=== PATIENT | male | born 1980 | race Two or more races ===

== ENCOUNTER 2023-09-28 17:56 | Inpatient (IN) | payer OTHER, SELFPAY ==
[2023-09-28 18:41] VITALS: BMI 17.0
[2023-09-28 18:42] VITALS: BP 129/86; PULSE 56; RESP 17; TEMP 36.7; O2SAT 99
--- NOTE | 2023-09-28 18:58 | PC.ADMIT ---
Hieu Gardner arrived to the unit at 1805, signed Conditional Voluntary, sharps check done by chart writer and male MHC. Upon approach Hieu reports feeling Very depressed, he reports feeling anxious, hearing voices They are laughing at me, making fun of me. He reports using Fentanyl, cocaine, cannabis and heroin prior to admission, reports withdrawal symptoms, he reports SI with plan to inject 50 bags of heroin. Hieu stated 'I just want to go to bed, per assessment Hieu presented to [facility] endorsing SI with plan to overdose on heroin. Hieu reported increased depression to due various stresors such as being homeless which has contributed to his increase in substance abuse. Per assessment Hieu is seeking to stabilize his depression to abstain from substances.
[2023-09-29] MEDS: Loperamide HCl 2 MG CAPSULE PO (06:52)
[2023-09-29] MEDS: cloNIDine HCL 0.1 MG TABLET PO (06:52)
[2023-09-29] MEDS: Dicyclomine HCl 10 MG CAPSULE PO (06:52)
[2023-09-29 08:00] VITALS: PULSE 52
[2023-09-29 08:24] VITALS: BP 111/69; PULSE 52; RESP 16; TEMP 37; O2SAT 99
[2023-09-29 08:43] LABS: MANUAL DIFF FLAG NO
[2023-09-29 08:51] LABS: Basophils Percent Auto 0.2 % (0-2); Hemoglobin 11.7 g/dl (14.0-18.0); Imm Gran Abs Auto 0.03 X10*3/uL (0.00-0.03); Imm Gran Pct Auto 0.3 % (0.0-0.4); Lymphocytes Absolute Auto 2.1 X10*3/uL (1.2-4.9); Lymphocytes Percent Auto 24.2 % (20-40); Mean Corpuscular HGB Conc 32.5 g/dl (31.0-36.0); Mean Corpuscular Hemoglobin 28.5 pg (27.0-33.0); Mean Corpuscular Volume 87.8 fL (80.0-98.0); Mean Platelet Volume 10.1 fL (9.4-12.4); Monocytes Absolute Auto 0.4 X10*3/uL (0.1-1.2); Monocytes Percent Auto 4.4 % (2-11); Neutrophils Absolute Auto 6.1 x10*3/uL (2.0-8.3); Neutrophils Percent Auto 70.9 % (45-73); Platelet Count 301 X10*3/uL (160-400); Red Cell Distribution Width 13.8 % (11.0-16.0); White Blood Count 8.6 X10*3/uL (4.8-10.8)
[2023-09-29 09:16] LABS: Alanine Aminotransferase 30 U/L (0-40); Albumin Level 3.6 g/dL (3.5-5.0); Alkaline Phosphatase 68 U/L (39-117); Anion Gap 12 (12-20); Aspartate Amino Transferase 33 U/L (5-37); Bilirubin Direct 0.2 mg/dL (0.0-0.5); Bilirubin Total 0.4 mg/dL (0.0-1.0); Blood Urea Nitrogen 10 mg/dL (9-16); Calcium 8.9 mg/dL (8.4-10.2); Carbon Dioxide 24 mmol/L (22-29); Chloride 104 mmol/L (96-108); Cholesterol 131 mg/dL (<200); Creatinine Clr Calc Pharmacy 93.5; Estimated Glomerular Filt Rate > 60; Glucose Fasting 105 mg/dL (60-99); HDL Cholesterol 61 mg/dL (>40); LDL Cholesterol Calculated 60 mg/dL (<100); Potassium 4.2 mmol/L (3.3-5.1); Sodium 136 mmol/L (135-145); Total Protein 6.8 g/dL (6.5-8.0); Triglycerides 54 mg/dL (<150)
[2023-09-29 09:33] LABS: Estimated Average Glucose 111 mg/dL; Free T4 (Free Thyroxine) 0.87 ng/dL (0.71-1.85); Hemoglobin A1c % 5.5 % (<6.0); Thyroid Stimulating Hormone 0.08 uIU/mL (0.32-4.0)
[2023-09-29 09:40] LABS: Folate 13.5 ng/mL (> or = 4.0); Vitamin B12 284 pg/mL (200-900)
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
--- NOTE | 2023-09-29 11:33 | HO.PM.IMCN ---
History of Present Illness Data of Consult Service Date: 09/29/23 Primary Care Provider: Unknown Physician HPI Reason for consult: Admission H&P Pt is a 43-year-old male with a PMH significant for untreated?hepatitis-C, IVDU, and schizophrenia who is admitted to [facility] psychiatry unit for increasing depression with SI with plan to overdose on heroin. Medical consult for admission H&P. ?Pt complains of feeling overall ?terrible? from detoxing. Has been having difficulty sleeping, nausea but no vomiting, over whole body aches. States he has been using 20 bags of heroin daily with last use 2 days ago. Patient injects in both arms and neck. He also reports being diagnosed with hepatitis C 10-12 years ago, has never sought treatment for this. Patient otherwise denies any acute medical complaints. Labs reviewed, significant for TSH of 0.08, otherwise grossly unremarkable. Review of Systems Review of Systems: Myalgias Upset stomach/nausea Difficulty sleeping Otherwise denies any acute medical complaints PMFSH Social History Household Members: None Housing: Homeless Do you presently have visiting nurse or other home services: No Patient Tobacco Use Status: Current everyday Tobacco user Tobacco use type: Cigarette Cigarette Packs Per Day: 1 Cigarettes Per Day: 20.0 Years Smoked: Many Smoked in Last 30 Days: Yes e-Cigarette/Vaping Use: Currently Using Patient Interested in Nicotine Replacement: No Use of substances other than those prescribed or required for medical reasons: Yes Substance Use Type: Crack/Cocaine, Heroin, IV Drugs and Marijuana Substance Use Type Other:: Fentanyl Substance Use Frequency: Chronic Longstanding Last Used Substance: Just Prior to Admission Currently Displaying Signs/Symptoms of Drug Intoxication Withdrawal: Yes (pt is on a COWS qshift) Any prior treatment program specific to substance use: No Have you been hit, kicked, punched, or otherwise hurt by someone within the past year? If so, by whom?: No Do you feel safe in your current relationship?: No Current Relationship Is there a partner from a previous relationship who is making you feel unsafe now?: No Are you made to feel afraid or neglected: No Spiritual Healthcare Practices: None Reported Hinduism Healthcare Practices: None Reported Cultural Healthcare Practices: None Reported Advance Directives: No Advance Directives Information Provided: No Do you have thoughts of harming others: None Do you have a plan to hurt others: No Plan Recently lost weight without trying: Unsure Eating poorly because of decreased appetite: No Nutrition Risks: No Nutritional Risk Poor oral hygiene: No service: No Sexual orientation: Straight/Heterosexual Meds Allergies Allergy/AdvReac Type Severity Reaction Status Date / Time Unable to Assess Allergy Verified 09/28/23 18:11 Active Medications: Current Medications Acetaminophen (Acetaminophen 325 Mg Tablet) 650 mg PO Q6H PRN PRN Reason: Headache/Pain Mild Scale (1-3) Al Hydroxide/Mg Hydroxide (Magnesium Hydrox/Alum Hydrox 30 Ml Oral.Susp) 30 ml PO Q6H PRN PRN Reason: Heartburn/Nausea Clonidine HCl (Clonidine Hcl 0.1 Mg Tablet) 0.1 mg PO Q4H PRN; Protocol PRN Reason: signs of opioid withdrawal Last Admin: 09/29/23 06:52 Dose: 0.1 mg Dicyclomine HCl (Dicyclomine Hcl 10 Mg Capsule) 10 mg PO QIDACHS PRN PRN Reason: cramps Last Admin: 09/29/23 06:52 Dose: 10 mg Hydroxyzine HCl (Hydroxyzine Hcl 25 Mg Tablet) 25 mg PO Q6H PRN PRN Reason: Anxiety Ibuprofen (Ibuprofen 600 Mg Tablet) 600 mg PO Q6H PRN PRN Reason: Pain, Moderate(Pain Scale 4-6) Loperamide HCl (Loperamide Hcl 2 Mg Capsule) 2 mg PO Q6H PRN PRN Reason: Diarrhea Last Admin: 09/29/23 06:52 Dose: 2 mg Magnesium Hydroxide (Milk Of Magnesia 30 Ml Oral.Susp) 30 ml PO DAILY PRN PRN Reason: Constipation Nicotine Polacrilex (Nicotine Polacrilex 2 Mg Gum) 4 mg BUCCAL Q2H PRN PRN Reason: Nicotine Cravings Trazodone HCl (Trazodone Hcl 50 Mg Tablet) 50 mg PO BEDTIME MRX1 PRN PRN Reason: Insomnia Physical Exam Vital Signs and Narrative: Vital Signs: Last Vital Signs Temp 98.6 F 09/29/23 08:24 Pulse 52 09/29/23 08:24 Resp 16 09/29/23 08:24 BP 111/69 09/29/23 08:24 Pulse Ox 99 09/29/23 08:24 O2 Del Method Room Air 09/29/23 08:24 BMI result Body Mass Index 17.0 General: AOx3, cachectic, no acute distress HEENT: Poor dentition, sclera non icteric Resp: CTA bilaterally CVS: S1, S2, RRR GI: +BS, NT, no distention Skin: No rash, no sign of cellulitis in upper extremities or neck Neuro: Cranial nerves II-XII grossly intact bilaterally. Motor grossly intact bilaterally Extremities: No edema Psych: Flat affect Results Labs 09/29/23 07:59 09/29/23 07:59 Labs: Laboratory Results - last 24 hr 09/29/23 07:59 MCV 87.8 MCH 28.5 MCHC 32.5 RDW 13.8 Plt Count 301 MPV 10.1 Immature Gran % (Auto) 0.3 Neut % (Auto) 70.9 Lymph % (Auto) 24.2 [place] % (Auto) 4.4 Eos % (Auto) 0.0 Baso % (Auto) 0.2 Lymph # (Auto) 2.1 [place] # (Auto) 0.4 Eos # (Auto) 0.0 Baso # (Auto) 0.0 Abs Immat Gran (auto) 0.03 Absolute Neuts (auto) 6.1 Absolute Nucleated RBC 0.000 Nucleated RBC % (auto) 0.0 Anion Gap 12 Estim Creat Clear Calc 93.5 Estimated GFR > 60 Fasting Glucose 105 H Estimat Average Glucose 111 Hemoglobin A1c % 5.5 Calcium 8.9 Total Bilirubin 0.4 Direct Bilirubin 0.2 AST 33 ALT 30 Alkaline Phosphatase 68 Total Protein 6.8 Albumin 3.6 Triglycerides 54 Cholesterol 131 LDL Cholesterol, Calc 60 HDL Cholesterol 61 Vitamin B12 284 Folate 13.5 TSH 0.08 L Free T4 0.87 Assessment and Plan (1) Medical clearance for psychiatric admission: Status: Acute Plan Pt is a 43-year-old male with a PMH significant for untreated?hepatitis-C, IVDU, and schizophrenia who is admitted to [facility] psychiatry unit for increasing depression with SI with plan to overdose on heroin. Medical consult for admission H&P. Mood disorder Plan as per Psychiatry IVDU Patient reports daily use of 20 bags of heroin, injected into upper extremities and neck, last used 2 days ago Plan as per Psychiatry Hepatitis-C Patient reports being diagnosed 10-12 years ago, has never sought treatment Currently asymptomatic, hepatic panel unremarkable Follow-up outpatient for hep C viral load, possible treatment Thank you for allowing us to participate in the care of this patient. Signing off at this time. Please let us know if there are any acute complaints or questions.
[2023-09-29] MEDS: methADONE HCl 20 MG/2 ML ORAL.CONC 40 MG PO (12:54)
[2023-09-29] MEDS: FLUoxetine HCl 10 MG CAPSULE PO (12:55)
[2023-09-29] MEDS: risperiDONE 1 MG TABLET PO ×2 (12:55→22:13)
--- NOTE | 2023-09-29 15:37 | HO.ADDICT_ITS ---
History of Present Illness Date of Service: 09/29/2023 Chief Complaint: Depression Reason for Consult: opioid use disorder and withdrawal Sources of Information: patient interviewed and chart reviewed HPI Narrative: Patient is a 43 year old male with OUD currently admitted to unit with worsening depression. Consult requested as patient was reporting withdrawal sx, and was given methadone 40mg while in ED prior to admission on 09/28. 40mg methadone administered today prior to interview with this quality analyst/technical writer. Patient seen in room 306--hoop punch and coiler operator present during interview. Patient laying in bed, covers pulled up. Awake, easily engaging in conversation, however softspoken. Reporting 2 bundles of opiate use daily along with cocaine. Denies any other substance use, including alcohol. Reporting improvement in withdrawal sx with methadone dose. Previously on methadone for years , reprots being stable at 60mg daily. Most recently at [facility] and would like to return there for continuation of treatment at time of discharge. Admission note shows early age use of heroin and cocaine (21 years old). Limited supports, unstably housed. Review of Systems Constitutional: Reports body ache(s), Reports malaise and Reports poor appetite Gastrointestinal: Reports loose stools Diagnostics Vital Signs (24Hr): Vital Signs - 24 hr 09/28/23 18:42 09/29/23 08:24 Temperature 98.1 F 98.6 F Pulse Rate 56 52 Respiratory Rate 17 16 Blood Pressure 129/86 111/69 Pulse Oximetry 99 99 Oxygen Delivery Method Room Air Room Air BMI result Body Mass Index 17.0 Labs 09/29/23 07:59 09/29/23 07:59 Labs: Laboratory Results - last 48 hr 09/29/23 07:59 WBC 8.6 RBC 4.10 L Hgb 11.7 L Hct 36.0 L MCV 87.8 MCH 28.5 MCHC 32.5 RDW 13.8 Plt Count 301 MPV 10.1 Immature Gran % (Auto) 0.3 Neut % (Auto) 70.9 Lymph % (Auto) 24.2 [place] % (Auto) 4.4 Eos % (Auto) 0.0 Baso % (Auto) 0.2 Lymph # (Auto) 2.1 [place] # (Auto) 0.4 Eos # (Auto) 0.0 Baso # (Auto) 0.0 Abs Immat Gran (auto) 0.03 Absolute Neuts (auto) 6.1 Absolute Nucleated RBC 0.000 Nucleated RBC % (auto) 0.0 Sodium 136 Potassium 4.2 Chloride 104 Carbon Dioxide 24 Anion Gap 12 BUN 10 Creatinine 0.66 Estim Creat Clear Calc 93.5 Estimated GFR > 60 Fasting Glucose 105 H Estimat Average Glucose 111 Hemoglobin A1c % 5.5 Calcium 8.9 Total Bilirubin 0.4 Direct Bilirubin 0.2 AST 33 ALT 30 Alkaline Phosphatase 68 Total Protein 6.8 Albumin 3.6 Triglycerides 54 Cholesterol 131 LDL Cholesterol, Calc 60 HDL Cholesterol 61 Vitamin B12 284 Folate 13.5 TSH 0.08 L Free T4 0.87 Mental Status Exam Mental Status Exam Level of Consciousness: Awake and Appropriate Patient Behavior: Appropriate Medications Medications Current Medications Acetaminophen (Acetaminophen 325 Mg Tablet) 650 mg PO Q6H PRN PRN Reason: Headache/Pain Mild Scale (1-3) Al Hydroxide/Mg Hydroxide (Magnesium Hydrox/Alum Hydrox 30 Ml Oral.Susp) 30 ml PO Q6H PRN PRN Reason: Heartburn/Nausea Clonidine HCl (Clonidine Hcl 0.1 Mg Tablet) 0.1 mg PO Q4H PRN; Protocol PRN Reason: signs of opioid withdrawal Last Admin: 09/29/23 06:52 Dose: 0.1 mg Dicyclomine HCl (Dicyclomine Hcl 10 Mg Capsule) 10 mg PO QIDACHS PRN PRN Reason: cramps Last Admin: 09/29/23 06:52 Dose: 10 mg Fluoxetine HCl (Fluoxetine Hcl 10 Mg Capsule) 10 mg PO DAILY DANE Last Admin: 09/29/23 12:55 Dose: 10 mg Hydroxyzine HCl (Hydroxyzine Hcl 25 Mg Tablet) 25 mg PO Q6H PRN PRN Reason: Anxiety Ibuprofen (Ibuprofen 600 Mg Tablet) 600 mg PO Q6H PRN PRN Reason: Pain, Moderate(Pain Scale 4-6) Loperamide HCl (Loperamide Hcl 2 Mg Capsule) 2 mg PO Q6H PRN PRN Reason: Diarrhea Last Admin: 09/29/23 06:52 Dose: 2 mg Magnesium Hydroxide (Milk Of Magnesia 30 Ml Oral.Susp) 30 ml PO DAILY PRN PRN Reason: Constipation Methadone HCl (Methadone Hcl 20 Mg/2 Ml Oral.Conc) 50 mg PO DAILY [facility] Nicotine Polacrilex (Nicotine Polacrilex 2 Mg Gum) 4 mg BUCCAL Q2H PRN PRN Reason: Nicotine Cravings Risperidone (Risperidone 1 Mg Tablet) 1 mg PO BID DANE Last Admin: 09/29/23 12:55 Dose: 1 mg Trazodone HCl (Trazodone Hcl 50 Mg Tablet) 50 mg PO BEDTIME MRX1 PRN PRN Reason: Insomnia Allergies Allergies Allergy/AdvReac Type Severity Reaction Status Date / Time Unable to Assess Allergy Verified 09/28/23 18:11 Assessment & Plan Assessment & Plan (1) Opioid abuse: Status: Acute Code(s): F11.10 - Opioid abuse, uncomplicated Assessment and Plan: * methadone increase to 50mg QD in AM * requesting to be referred back to [facility] * hoop punch and coiler operator to follow up tomorrow to assess improvement in sx * speech coach to meet with patient on evening 09/30 Total time managing care of this patient today _25___ minutes. [facility] Social History Social History Household Members: None Housing: Homeless Do you presently have visiting nurse or other home services: No Patient Tobacco Use Status: Current everyday Tobacco user Tobacco use type: Cigarette Cigarette Packs Per Day: 1 Cigarettes Per Day: 20.0 Years Smoked: Many Smoked in Last 30 Days: Yes e-Cigarette/Vaping Use: Currently Using Patient Interested in Nicotine Replacement: No Use of substances other than those prescribed or required for medical reasons: Yes Substance Use Type: Crack/Cocaine, Heroin, IV Drugs and Marijuana Substance Use Type Other:: Fentanyl Substance Use Frequency: Chronic Longstanding Last Used Substance: Just Prior to Admission Currently Displaying Signs/Symptoms of Drug Intoxication Withdrawal: Yes (pt is on a COWS qshift) Any prior treatment program specific to substance use: No Have you been hit, kicked, punched, or otherwise hurt by someone within the past year? If so, by whom?: No Do you feel safe in your current relationship?: No Current Relationship Is there a partner from a previous relationship who is making you feel unsafe now?: No Are you made to feel afraid or neglected: No Spiritual Healthcare Practices: None Reported Latter Day Healthcare Practices: None Reported Cultural Healthcare Practices: None Reported Advance Directives: No Advance Directives Information Provided: No Do you have thoughts of harming others: None Do you have a plan to hurt others: No Plan Recently lost weight without trying: Unsure Eating poorly because of decreased appetite: No Nutrition Risks: No Nutritional Risk Poor oral hygiene: No service: No Sexual orientation: Straight/Heterosexual
[2023-09-29 22:05] VITALS: BP 123/69; PULSE 58; RESP 16; TEMP 36.7; O2SAT 98
[2023-09-30] MEDS: Acetaminophen 325 MG TABLET 650 MG PO (05:09)
[2023-09-30 07:30] VITALS: BP 125/77; PULSE 69; RESP 14; TEMP 36.7; O2SAT 97
[2023-09-30 08:00] VITALS: PULSE 69
[2023-09-30 08:21] VITALS: BMI 16.3
[2023-09-30] MEDS: Nicotine 21 MG PATCH.TD24 TRANSDERMA (08:29)
[2023-09-30] MEDS: methADONE HCl 20 MG/2 ML ORAL.CONC 50 MG PO (08:30)
[2023-09-30] MEDS: FLUoxetine HCl 10 MG CAPSULE PO (08:31)
[2023-09-30] MEDS: risperiDONE 1 MG TABLET PO ×2 (08:31→22:41)
--- NOTE | 2023-09-30 09:22 | P.PNPSI_ITS ---
Subjective Subjective Date of Service: 09/30/23 Reason For Visit: Depression Subjective Notes: Conditional Voluntary Interim History: Reviewed with . Patient stated, I'm feeling much better. My mood is getting better . Patient reports sleeping well last night. Social with peers. Attending groups. Reports faint auditory hallucinations. denies SI/HI/VH. Pt reports he is hoping to get into a program soon. Medication Compliance: Yes Side effects from medications: No Attending Groups: Yes Review of Systems Constitutional: Reports as per HPI Eyes: Reports as per HPI Reports as per HPI Cardiovascular: Reports as per HPI Respiratory: Reports as per HPI Gastrointestinal: Reports as per HPI Genitourinary: Reports as per HPI Musculoskeletal: Reports as per HPI Skin/Breast: Reports as per HPI Reports as per HPI Psychiatric: Reports as per HPI Endocrine: Reports as per HPI Hematologic/Lymphatic: Reports as per HPI Allergic/Immunologic: Reports as per HPI Mental Status Exam Mental Status Exam Narrative: Pt is alert and oriented; behavior is cooperative, friendly and calm; dressed in casual attire; mood is described as good ; eye contact appropriate; Speech is normal rate, volume and prosody and not pressured; no psychomotor agitation/retardation present; thought process is organized and goal directed; Thought content is on tx; otherwise pertinent to relevant topics and without any delusional content, paranoid ideations or grandiosity; denies SI/HI/VH. Reports faint auditory hallucinations. Patients insight and judgment are fair. Diagnostics Vital Signs (24Hr): Vital Signs - 24 hr 09/29/23 22:05 09/30/23 07:30 Temperature 98.0 F 98.1 F Pulse Rate 58 69 Respiratory Rate 16 14 Blood Pressure 123/69 125/77 Pulse Oximetry 98 97 Oxygen Delivery Method Room Air Room Air BMI result Body Mass Index 16.3 Labs 09/29/23 07:59 09/29/23 07:59 Labs: Laboratory Results - last 48 hr 09/29/23 07:59 WBC 8.6 RBC 4.10 L Hgb 11.7 L Hct 36.0 L MCV 87.8 MCH 28.5 MCHC 32.5 RDW 13.8 Plt Count 301 MPV 10.1 Immature Gran % (Auto) 0.3 Neut % (Auto) 70.9 Lymph % (Auto) 24.2 [place] % (Auto) 4.4 Eos % (Auto) 0.0 Baso % (Auto) 0.2 Lymph # (Auto) 2.1 [place] # (Auto) 0.4 Eos # (Auto) 0.0 Baso # (Auto) 0.0 Abs Immat Gran (auto) 0.03 Absolute Neuts (auto) 6.1 Absolute Nucleated RBC 0.000 Nucleated RBC % (auto) 0.0 Sodium 136 Potassium 4.2 Chloride 104 Carbon Dioxide 24 Anion Gap 12 BUN 10 Creatinine 0.66 Estim Creat Clear Calc 93.5 Estimated GFR > 60 Fasting Glucose 105 H Estimat Average Glucose 111 Hemoglobin A1c % 5.5 Calcium 8.9 Total Bilirubin 0.4 Direct Bilirubin 0.2 AST 33 ALT 30 Alkaline Phosphatase 68 Total Protein 6.8 Albumin 3.6 Triglycerides 54 Cholesterol 131 LDL Cholesterol, Calc 60 HDL Cholesterol 61 Vitamin B12 284 Folate 13.5 TSH 0.08 L Free T4 0.87 Medications Medications Current Medications Acetaminophen (Acetaminophen 325 Mg Tablet) 650 mg PO Q6H PRN PRN Reason: Headache/Pain Mild Scale (1-3) Last Admin: 09/30/23 05:09 Dose: 650 mg Al Hydroxide/Mg Hydroxide (Magnesium Hydrox/Alum Hydrox 30 Ml Oral.Susp) 30 ml PO Q6H PRN PRN Reason: Heartburn/Nausea Clonidine HCl (Clonidine Hcl 0.1 Mg Tablet) 0.1 mg PO Q4H PRN; Protocol PRN Reason: signs of opioid withdrawal Last Admin: 09/29/23 06:52 Dose: 0.1 mg Dicyclomine HCl (Dicyclomine Hcl 10 Mg Capsule) 10 mg PO QIDACHS PRN PRN Reason: cramps Last Admin: 09/29/23 06:52 Dose: 10 mg Fluoxetine HCl (Fluoxetine Hcl 10 Mg Capsule) 10 mg PO DAILY [facility]ANE Last Admin: 09/30/23 08:31 Dose: 10 mg Hydroxyzine HCl (Hydroxyzine Hcl 25 Mg Tablet) 25 mg PO Q6H PRN PRN Reason: Anxiety Ibuprofen (Ibuprofen 600 Mg Tablet) 600 mg PO Q6H PRN PRN Reason: Pain, Moderate(Pain Scale 4-6) Loperamide HCl (Loperamide Hcl 2 Mg Capsule) 2 mg PO Q6H PRN PRN Reason: Diarrhea Last Admin: 09/29/23 06:52 Dose: 2 mg Magnesium Hydroxide (Milk Of Magnesia 30 Ml Oral.Susp) 30 ml PO DAILY PRN PRN Reason: Constipation Methadone HCl (Methadone Hcl 20 Mg/2 Ml Oral.Conc) 50 mg PO DAILY [facility] Last Admin: 09/30/23 08:30 Dose: 50 mg Nicotine (Nicotine 21 Mg Patch.Td24) 21 mg TRANSDERMA DAILY [facility] Last Admin: 09/30/23 08:29 Dose: 21 mg Nicotine Polacrilex (Nicotine Polacrilex 2 Mg Gum) 4 mg BUCCAL Q2H PRN PRN Reason: Nicotine Cravings Risperidone (Risperidone 1 Mg Tablet) 1 mg PO BID [facility] Last Admin: 09/30/23 08:31 Dose: 1 mg Trazodone HCl (Trazodone Hcl 50 Mg Tablet) 50 mg PO BEDTIME MRX1 PRN PRN Reason: Insomnia Allergies Allergies Allergy/AdvReac Type Severity Reaction Status Date / Time Unable to Assess Allergy Verified 09/28/23 18:11 Assessment & Plan Assessment & Plan (1) MDD (major depressive disorder), recurrent episode: Status: Acute Code(s): F33.9 - Major depressive disorder, recurrent, unspecified (2) PTSD (post-traumatic stress disorder): Status: Acute Code(s): F43.10 - Post-traumatic stress disorder, unspecified (3) Opioid abuse: Status: Acute Code(s): F11.10 - Opioid abuse, uncomplicated Assessment and Plan: * methadone increase to 50mg QD in AM * requesting to be referred back to [facility] * multi purpose machine operator to follow up tomorrow to assess improvement in sx * head tennis coach to meet with patient on evening 09/30 (4) Cocaine abuse: Status: Acute Code(s): F14.10 - Cocaine abuse, uncomplicated Plan Patient is a 43 year old male with hx of MDD, PTSD, opioid use d/o, cocaine use d/o who was seen at [facility] ER d/t suicidal ideation with plan to overdose on heroin secondary to increased depressive symptoms and various life stressors. Plan: CV 15 minute safety checks Addiction medicine consult Start: Prozac 10mg PO daily Risperdal 1mg PO BID Methadone 40mg PO once; was increased to 50mg PO daily by Dolores Alexandra NP. Referral to outpatient therpist and provider Referral to substance abuse program? 09/30: Patient stated, I'm feeling much better. My mood is getting better . Patient reports sleeping well last night. Social with peers. Attending groups. Reports faint auditory hallucinations. denies SI/HI/VH. Pt reports he is hoping to get into a program soon. Patient educated on: diagnosis, medication risk/benefits, substance abuse and therapeutic strategies Informed Consent: understands Reason for continued inpatient stay Substantial Risk for: med/psych decompensation Time Spent With Patient Time: Total time managing care of this patient today _30___ minutes.
[2023-09-30] MEDS: cloNIDine HCL 0.1 MG TABLET PO (10:29)
--- NOTE | 2023-09-30 13:33 | MHC.RECOVRN ---
Met with pt to follow up after methadone increase. Pt awake, alert, walking in milieu. Does not appear to be uncomfortable. Pt reports 50 mg was better, however, continues to report hot/cold flashes and is requesting a dose increase. Pt reports appetite is fair and sleep is adequate, states I was up at 4 this morning. Pt denies other questions or concerns for t/w. Discussed with Dolores Alexandra APRN.
[2023-09-30] MEDS: Nicotine Polacrilex 2 MG GUM 4 MG BUCCAL (14:56)
--- NOTE | 2023-09-30 19:24 | MHC.RECOVSUP ---
? Reason for consult:OPI o? Current location:306-1? o? Identified substance use concern:? -? Support ? Intervention: o? Community resources provided o? Harm reduction discussion ? Plan:[facility] ? ? Additional information:[facility] met with this pt and discussed treatment options, this pt stated he'd like to continue inpatient treatment at a [facility]. provided this pt with recovery resources as well as contact information so pt can obtain a [facility].
[2023-09-30 20:05] VITALS: BP 104/60; PULSE 70; RESP 16; O2SAT 98
[2023-10-01 08:00] VITALS: BP 109/67; PULSE 73; RESP 16; TEMP 37; O2SAT 100
[2023-10-01] MEDS: risperiDONE 1 MG TABLET PO (08:19)
[2023-10-01] MEDS: FLUoxetine HCl 10 MG CAPSULE PO (08:19)
[2023-10-01] MEDS: methADONE HCl 20 MG/2 ML ORAL.CONC 60 MG PO (08:20)
--- NOTE | 2023-10-01 09:07 | P.PNPSI_ITS ---
Subjective Subjective Reason For Visit: Depression Diagnostics Vital Signs (24Hr): Vital Signs - 24 hr 09/30/23 20:05 10/01/23 08:00 Temperature 98.6 F Pulse Rate 70 73 Respiratory Rate 16 16 Blood Pressure 104/60 109/67 Pulse Oximetry 98 100 Oxygen Delivery Method Room Air Room Air BMI result Body Mass Index 16.3 Labs 09/29/23 07:59 09/29/23 07:59 Labs: Laboratory Results - last 48 hr 09/29/23 07:59 Sodium 136 Potassium 4.2 Chloride 104 Carbon Dioxide 24 Anion Gap 12 BUN 10 Creatinine 0.66 Estim Creat Clear Calc 93.5 Estimated GFR > 60 Fasting Glucose 105 H Estimat Average Glucose 111 Hemoglobin A1c % 5.5 Calcium 8.9 Total Bilirubin 0.4 Direct Bilirubin 0.2 AST 33 ALT 30 Alkaline Phosphatase 68 Total Protein 6.8 Albumin 3.6 Triglycerides 54 Cholesterol 131 LDL Cholesterol, Calc 60 HDL Cholesterol 61 Vitamin B12 284 Folate 13.5 TSH 0.08 L Free T4 0.87 Medications Medications Current Medications Acetaminophen (Acetaminophen 325 Mg Tablet) 650 mg PO Q6H PRN PRN Reason: Headache/Pain Mild Scale (1-3) Last Admin: 09/30/23 05:09 Dose: 650 mg Al Hydroxide/Mg Hydroxide (Magnesium Hydrox/Alum Hydrox 30 Ml Oral.Susp) 30 ml PO Q6H PRN PRN Reason: Heartburn/Nausea Clonidine HCl (Clonidine Hcl 0.1 Mg Tablet) 0.1 mg PO Q4H PRN; Protocol PRN Reason: signs of opioid withdrawal Last Admin: 09/30/23 10:29 Dose: 0.1 mg Dicyclomine HCl (Dicyclomine Hcl 10 Mg Capsule) 10 mg PO QIDACHS PRN PRN Reason: cramps Last Admin: 09/29/23 06:52 Dose: 10 mg Fluoxetine HCl (Fluoxetine Hcl 10 Mg Capsule) 10 mg PO DAILY [facility] Last Admin: 10/01/23 08:19 Dose: 10 mg Hydroxyzine HCl (Hydroxyzine Hcl 25 Mg Tablet) 25 mg PO Q6H PRN PRN Reason: Anxiety Ibuprofen (Ibuprofen 600 Mg Tablet) 600 mg PO Q6H PRN PRN Reason: Pain, Moderate(Pain Scale 4-6) Loperamide HCl (Loperamide Hcl 2 Mg Capsule) 2 mg PO Q6H PRN PRN Reason: Diarrhea Last Admin: 09/29/23 06:52 Dose: 2 mg Magnesium Hydroxide (Milk Of Magnesia 30 Ml Oral.Susp) 30 ml PO DAILY PRN PRN Reason: Constipation Methadone HCl (Methadone Hcl 20 Mg/2 Ml Oral.Conc) 60 mg PO DAILY [facility] Last Admin: 10/01/23 08:20 Dose: 60 mg Nicotine (Nicotine 21 Mg Patch.Td24) 21 mg TRANSDERMA DAILY [facility] Last Admin: 09/30/23 08:29 Dose: 21 mg Nicotine Polacrilex (Nicotine Polacrilex 2 Mg Gum) 4 mg BUCCAL Q2H PRN PRN Reason: Nicotine Cravings Last Admin: 09/30/23 14:56 Dose: 4 mg Risperidone (Risperidone 1 Mg Tablet) 1 mg PO BID [facility] Last Admin: 10/01/23 08:19 Dose: 1 mg Trazodone HCl (Trazodone Hcl 50 Mg Tablet) 50 mg PO BEDTIME MRX1 PRN PRN Reason: Insomnia Allergies Allergies Allergy/AdvReac Type Severity Reaction Status Date / Time Unable to Assess Allergy Verified 09/28/23 18:11 Assessment & Plan Assessment & Plan (1) MDD (major depressive disorder), recurrent episode: Status: Acute Code(s): F33.9 - Major depressive disorder, recurrent, unspecified (2) PTSD (post-traumatic stress disorder): Status: Acute Code(s): F43.10 - Post-traumatic stress disorder, unspecified (3) Opioid abuse: Status: Acute Code(s): F11.10 - Opioid abuse, uncomplicated Assessment and Plan: * methadone increase to 50mg QD in AM * requesting to be referred back to [facility] * telecommunications facility examiner to follow up tomorrow to assess improvement in sx * cheerleading coach to meet with patient on evening 09/30 (4) Cocaine abuse: Status: Acute Code(s): F14.10 - Cocaine abuse, uncomplicated Plan Patient is a 43 year old male with hx of MDD, PTSD, opioid use d/o, cocaine use d/o who was seen at [facility] ER d/t suicidal ideation with plan to overdose on heroin secondary to increased depressive symptoms and various life stressors. Plan: CV 15 minute safety checks Addiction medicine consult Start: Prozac 10mg PO daily Risperdal 1mg PO BID Methadone 40mg PO once; was increased to 50mg PO daily by Dolores Alexandra NP. Referral to outpatient therpist and provider Referral to substance abuse program? 09/30: Patient stated, I'm feeling much better. My mood is getting better . Patient reports sleeping well last night. Social with peers. Attending groups. Reports faint auditory hallucinations. denies SI/HI/VH. Pt reports he is hoping to get into a program soon. Time Spent With Patient Time: Total time managing care of this patient today ____ minutes.
[2023-10-01] MEDS: Nicotine 21 MG PATCH.TD24 TRANSDERMA (09:44)
[2023-10-01] MEDS: Mineral Oil/Petrolatum,White 106 GM Tube 1 APPL TOPICAL (11:21)
--- NOTE | 2023-10-01 11:30 | PM.PSYDC ---
DS: Providers Provider Date of Service: 10/01/23 Date of admission: 09/28/23 17:56 Date of discharge: 10/01/23 Primary care physician: Unknown Physician Admitting clinician: Aaliyah Dietrich Attending physician on admission: Bon Duong Consults: 09/28/23 18:11 Consult to Hospitalist Routine Comment: Consulting Provider: Hospitalist Reason For Exam: OSH admission 09/29/23 11:51 Addiction Medicine Routine Consulting Provider: Addiction Covering Reason for consultation: w/d heroin;used to take methodone for 6 yrs;wants help recovery and coach driver. Attending physician on discharge: Bon Duong Discharging clinician: Aaliyah Dietrich DS: Diagnosis Discharge Diagnosis (1) MDD (major depressive disorder), recurrent episode: Status: Acute (2) PTSD (post-traumatic stress disorder): Status: Acute (3) Opioid abuse: Status: Acute (4) Cocaine abuse: Status: Acute DS: Medications Discharge Medications Home Medications: Previous Rx's Medication Instructions Recorded fluoxetine 10 mg capsule 10 mg PO DAILY 30 days #30 caps 10/01/23 methadone 10 mg/mL oral 60 mg (6 mL) PO DAILY #0 mL 10/01/23 concentrate (Methadose) risperidone 1 mg tablet 1 mg PO BID 30 days #60 tabs 10/01/23 Mental Status Exam Mental Status Exam Narrative: Pt is alert and oriented; behavior is cooperative, friendly and calm; dressed in casual attire; mood is described as good ; eye contact appropriate; Speech is normal rate, volume and prosody and not pressured; no psychomotor agitation/retardation present; thought process is organized and goal directed; Thought content is on tx; otherwise pertinent to relevant topics and without any delusional content, paranoid ideations or grandiosity; denies SI/HI. There is no evidence of perceptual disturbance. Patients insight and judgment are fair. Data Data Completed and Pending Completed studies during hospitalization [Text1]: 09/29/23 07:59 WBC 8.6 RBC 4.10 L Hgb 11.7 L Hct 36.0 L MCV 87.8 MCH 28.5 MCHC 32.5 RDW 13.8 Plt Count 301 MPV 10.1 Immature Gran % (Auto) 0.3 Neut % (Auto) 70.9 Lymph % (Auto) 24.2 [place] % (Auto) 4.4 Eos % (Auto) 0.0 Baso % (Auto) 0.2 Lymph # (Auto) 2.1 [place] # (Auto) 0.4 Eos # (Auto) 0.0 Baso # (Auto) 0.0 Abs Immat Gran (auto) 0.03 Absolute Neuts (auto) 6.1 Absolute Nucleated RBC 0.000 Nucleated RBC % (auto) 0.0 Sodium 136 Potassium 4.2 Chloride 104 Carbon Dioxide 24 Anion Gap 12 BUN 10 Creatinine 0.66 Estim Creat Clear Calc 93.5 Estimated GFR > 60 Fasting Glucose 105 H Estimat Average Glucose 111 Hemoglobin A1c % 5.5 Calcium 8.9 Total Bilirubin 0.4 Direct Bilirubin 0.2 AST 33 ALT 30 Alkaline Phosphatase 68 Total Protein 6.8 Albumin 3.6 Triglycerides 54 Cholesterol 131 LDL Cholesterol, Calc 60 HDL Cholesterol 61 Vitamin B12 284 Folate 13.5 TSH 0.08 L Free T4 0.87 DS: Summary Hospital Course Hospital Course: Patient is a 43 year old male with hx of MDD, PTSD, opioid use d/o, cocaine use d/o who was seen at [facility] ER d/t suicidal ideation with plan to overdose on heroin secondary to increased depressive symptoms and various life stressors. 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 He reported feeling depressed and hopeless. During admission assessment, patient presents calm and cooperative. Pt stated, I'm depressed. I have no family out here. I've been using heroin for a long time. I was on methadone for six years, then I relapsed because I decided to use. Being homeless and not taking my depression medications made me suicidal . UTOX positive for opiates, fentanyl, cocaine and cannabis. Patient reports he would like helping restarting methadone and obtaining a control and recovery combat rescue. Pt stated, I got banned from [facility] and [facility] shelters because of using drugs on the premises . He reports hx of taking Prozac, Risperdal, clonidine, and trazodone with positive affect . Patient denies any current outpatient providers but would like to be referred to a outpatient therapist and psychiatric provider. He reports auditory hallucinations of people laughing . denies SI/HI/VH. During hospital stay, pt was seen by addiction medicine. Addiction medicine consult Start: Prozac 10mg PO daily Risperdal 1mg PO BID Methadone 40mg PO once; was increased to 50mg PO daily by Dolores Alexandra NP. Patient stated, I'm feeling much better. My mood is getting better . Patient reports sleeping well last night. Social with peers. Attending groups. Reports faint auditory hallucinations. denies SI/HI/VH. Pt reports he is hoping to get into a program soon. Today patient presents, calm, cooperative and friendly. He reports feeling very good . Pt stated, my plan was to go to the [facility] but my mother called and she bought me a plane ticket to go to [place] tomorrow and stay with her. She set up doctors appointments for me and got me an appointment with the methadone clinic there . Patient reports he does not want to go use and wants to continue to stay clean . Patient reports he plans on staying with his aunt in [place], [place] this evening until his flight tomorrow. T/W called patient's mother to confirm, but went to . Patient denies SI/HI/VH/AH. He plans to follow up with outpatient providers. Time spent discussing smoking cessation with patient: 3 to 10 minutes Status at Discharge Cognitive/behavioral status at discharge: Patient was interviewed prior to discharge and found to be fully oriented and without any SI or HI. Patient has insight and demonstrates good judgment in terms of wanting to pursue treatment. Patient is not in imminent risk of harm to self or others and has a safety plan that includes presenting to the closest ER or calling 911 if feeling unsafe. Patient has been observed closely by nursing and unit staff throughout admission; patient has not engaged in any behaviors that suggest dangerousness to self or others and has demonstrated appropriate behaviors and impulse control. Functional status at discharge: independent ambulation Overall status at discharge: patient is back to baseline Time Spent with Patient Time attestation: Total time managing care of this patient today _30___ minutes. Time spent: Less than 30 minutes Discharge Plan Discharge Anticipated Discharge Date/Time: 10/01/23 12:00 Patient Disposition: Home, Self-Care Discharge Diagnosis: MDD, PTSD, opioid abuse d/o, cocaine abuse d/o Referrals: Physician,Unknown J [Primary Care Provider] - 1 Week (Mother scheduling appointment with new pcp in [place] 10/06/23 per pt) Discharge Medications: New fluoxetine 10 mg Capsule 10 mg PO DAILY 30 Days Qty: 30 0RF risperidone 1 mg Tablet 1 mg PO BID 30 Days Qty: 60 0RF methadone [Methadose] 10 mg/mL Concentrate 60 mg PO DAILY Qty: 0 0RF Rx Instructions: Partial Fill upon patient request. Discharge Orders: Discharge Order (Routine); Ordered 10/01/23 Ordered By: Aaliyah Dietrich Diet: Regular diet Activity on Discharge: As tolerated Stand Alone Forms: Patient Portal Discharge page, Community Support Care Plan Goals: Maintain mood and safe behaviors Take medications as prescribed Continue to pursue sobriety Practice coping skills Continue with outpatient providers and reach out to them as needed Health Concerns: Mood stability and behaviors Sobriety Plan of Treatment: Follow up with your PCP, psychiatric provider and other outpatient providers regarding above concerns Take medications as prescribed Assessment: Patient was interviewed prior to discharge and found to be fully oriented and without any SI or HI. Patient has insight and demonstrates good judgment in terms of wanting to pursue treatment. Patient is not in imminent risk of harm to self or others and has a safety plan that includes presenting to the closest ER or calling 911 if feeling unsafe. Patient has been observed closely by nursing and unit staff throughout admission; patient has not engaged in any behaviors that suggest dangerousness to self or others and has demonstrated appropriate behaviors and impulse control.
--- NOTE | 2023-10-01 12:50 | MHC.RECOVRN ---
Pt dc prior to t/w check in to assess opioid withdrawal/efficacy of current methadone dose.
== END 2023-10-01 12:15 | disposition home or self-care (01) | DRG 751 ==
PROVIDERS: Admitting Provider Psychiatry & Neurology Psychiatry; Responsible Provider Registered Nurse; Visit Provider Psychiatry & Neurology Psychiatry
DX: F33.9 Major depressive disorder, recurrent, unspecified (principal); R45.851 Suicidal ideations; F43.10 Post-traumatic stress disorder, unspecified; F14.10 Cocaine abuse, uncomplicated; B19.20 Unspecified viral hepatitis C without hepatic coma; F11.20 Opioid dependence, uncomplicated; E03.8 Other specified hypothyroidism; F17.210 Nicotine dependence, cigarettes, uncomplicated; Z71.6 Tobacco abuse counseling; Z62.810 Personal history of physical and sexual abuse in childhood; Z59.02 Unsheltered homelessness; Z56.0 Unemployment, unspecified; Z79.899 Other long term (current) drug therapy
CPT/HCPCS: 36415; 80053; 80061; 80076; 82607; 82746; 83036; 84439; 84443; 85025

== ENCOUNTER → 2023-09-28 17:56 | Outpatient (BNV) | payer MEDICAID, SELFPAY | PROVIDERS: Admitting Provider Psychiatry & Neurology Psychiatry; Responsible Provider Registered Nurse; Visit Provider Student in an Organized Health Care Education/Training Program | DX: Z00.8 Encounter for other general examination (principal) | CPT/HCPCS: 99222 ==

== ENCOUNTER → 2023-09-28 17:56 | Outpatient (BNV) | payer OTHER, SELFPAY | PROVIDERS: Admitting Provider Psychiatry & Neurology Psychiatry; Responsible Provider Registered Nurse; Visit Provider Nurse Practitioner Psychiatric/Mental Health | DX: F33.2 Major depressive disorder, recurrent severe without psychotic features (principal); F11.10 Opioid abuse, uncomplicated; F14.10 Cocaine abuse, uncomplicated; F43.11 Post-traumatic stress disorder, acute | CPT/HCPCS: 99221; 99231; 99233 ==